=== PATIENT | male | born 1975 | race Hispanic/Latino ===

== ENCOUNTER 2020-05-23 16:15 | Emergency (ER) | payer MEDICAID, OTHER ==
[2020-05-23] MEDS ORDERED: TETANUS/DIPHTHERIA TOXOID [ADULT] 0.5 ML VIAL IM ONE (18:12)
== END 2020-05-23 18:28 | disposition home or self-care (01) ==
LOC: EDH 16:15
DX: S01.01XA Laceration without foreign body of scalp, initial encounter (principal); W20.8XXA Other cause of strike by thrown, projected or falling object, initial encounter; Y93.89 Activity, other specified; Y92.098 Other place in other non-institutional residence as the place of occurrence of the external cause; Y99.8 Other external cause status
CPT/HCPCS: 12032; 90471; 90714

== ENCOUNTER 2020-08-15 07:37 | Emergency (ER) | payer OTHER ==
[~2020-08-15] VITALS: Ht 162.6 cm; Wt 88.0 kg
[2020-08-15 09:18] VITALS: BP 132/79
[2020-08-15] MEDS ORDERED: DiphenhydrAMINE HCL 50 MG/ML VIAL IV SCH (09:30)
[2020-08-15] MEDS ORDERED: PROCHLORPERAZINE EDISYLATE 10 MG/2 ML VIAL IV SCH (09:30)
[2020-08-15] MEDS ORDERED: NACL 0.9% 1000ML 1,000 ML IV SCH (09:30)
[2020-08-15 10:23] LABS: HEMATOCRIT 44.6 % (42-54); MEAN CORPUSCULAR HEMOGLOBIN 27.9 pg (27.0-33.0); MEAN CORPUSCULAR HGB CONC 33.6 g/dL (32.0-36.0); MEAN CORPUSCULAR VOLUME 82.9 fL (79-99); PLATELET COUNT (AUTO) 173 K/uL (130-400); RED BLOOD CELL COUNT(AUTO) 5.38 MIL/uL (4.50-6.20); RED CELL DISTRIBUTION WIDTH 13.7 % (11.0-15.5); WHITE BLOOD COUNT (AUTO) 3.2 K/uL (4.8-10.8)
[2020-08-15 10:27] LABS: APPEARANCE,URINE Clear (CLEAR); BILIRUBIN,URINE Negative (NEGATIVE); COLOR,URINE Yellow (YELLOW); GLUCOSE, URINE (UA) Negative (NEGATIVE); KETONES,URINE Negative (NEGATIVE); LEUKOCYTE ESTERASE ,URINE Negative (NEGATIVE); NITRATE,URINE Negative (NEGATIVE); OCCULT BLOOD,URINE Trace (NEGATIVE); PH,URINE 6.5 (5.0-8.0); PROTEIN,URINE Trace mg/dL (NEGATIVE)
[2020-08-15 10:33] LABS: BACTERIA,URINE Rare /HPF (None Seen); RBC,URINE 0-1 /HPF (0-1); SQUAMOUS EPITHELIAL CELL,UR Rare /HPF (0-2); WBC,URINE 0-1 /HPF (0-1)
[2020-08-15 10:37] LABS: CREATININE 0.9 mg/dL (0.5-1.5)
[2020-08-15 10:42] LABS: ALBUMIN 3.6 g/dL (3.5-5.0); BILIRUBIN,TOTAL 0.4 mg/dL (0.2-1.0); TOTAL PROTEIN, SERUM 7.9 g/dL (6.0-8.3)
[2020-08-15 10:57] LABS: BASOPHILS % (MANUAL) 2 % (0-2); LYMPHOCYTES % (MANUAL) 19 % (22-44); MAN.DIFF COMMENT-IMPRESSION MANUAL DIFFERENTIAL; MONOCYTES % (MANUAL) 10 % (2-9); PLATELET MORPHOLOGY COMMENT ADEQUATE; SEGMENTED NEUTROPHILS % 69 % (40-70)
[2020-08-15 11:11] VITALS: BP 118/64
[2020-08-15 12:19] VITALS: BP 108/68
== END 2020-08-15 12:30 | disposition home or self-care (01) ==
LOC: EDH 07:37
DX: T67.5XXA Heat exhaustion, unspecified, initial encounter (principal); G43.909 Migraine, unspecified, not intractable, without status migrainosus; X58.XXXA Exposure to other specified factors, initial encounter; Y93.89 Activity, other specified; Y92.89 Other specified places as the place of occurrence of the external cause; Y99.8 Other external cause status
CPT/HCPCS: 36415; 70450; 80053; 81001; 85025; 96361; 96374; 96375; 99284; J0780; J1200; J7030

== ENCOUNTER 2022-10-03 15:35 | Emergency (ER) | payer OTHER ==
[~2022-10-03] VITALS: Ht 162.6 cm; Wt 90.7 kg
[2022-10-03] MEDS ORDERED: TRAM50TA4 PO (17:59)
[2022-10-03] MEDS ORDERED: CYCLOBENZAPRINE HCL 10 MG TABLET PO ONE (18:00)
[2022-10-03] MEDS ORDERED: KETOROLAC 30MG VIAL (30MG/ML) IM ONE (18:00)
[2022-10-03 19:52] VITALS: BP 141/74; PULSE 69; RESP 16; O2SAT 98
== END 2022-10-03 20:35 | disposition home or self-care (01) ==
LOC: EDH 15:35
DX: M54.42 Lumbago with sciatica, left side (principal); I10 Essential (primary) hypertension
CPT/HCPCS: 99283; 96372; J1885